=== PATIENT | male | born 1995 | race Caucasian/White ===

== ENCOUNTER 2016-11-04 17:18 | Emergency (ER) | payer BC, OTHER ==
[~2016-11-04] VITALS: Ht 170.2 cm; Wt 90.0 kg
[~2016-11-04 17:18] MED LIST: ERYT.5%O LEFT EYE; LORTA5 PO
[2016-11-04 17:19] VITALS: BP 132/73; PULSE 90; RESP 15; TEMP 98.4; O2SAT 99
--- NOTE | 2016-11-04 18:31 | PD ---
HPI Chief Complaint: Skin Problem Time Seen by Provider: 18:20 Travel History International Travel<30 days: No Contact w/Intl Traveler<30days: No Traveled to known affect area: No History of Present Illness HPI 21-year-old [place] male presents the emergency department with itchy lesions to both lower extremities which she's noticed over the past 2 weeks. Patient states they start with a small area which is very itchy which itches to the point of bleeding and then he gets a small infection to the areas. Has no fever, chills, or other constitutional symptoms. However the patient has noted some loose stools over the past 2 weeks. Patient states the lesions are only on his lower extremities. He denies seeing any insects biting him. 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 No one else in the family has any other similar lesions. He has no history of MRSA in the past. He has no known drug allergies. PFSH Past Medical History Hx Anticoagulant Therapy: No Cardiovascular Problems: No Chemotherapy: No Cerebrovascular Accident: No Diabetes: No Respiratory: No Social History Alcohol Use: No Tobacco Use: No Substance Use: No Allergies-Medications (Allergen,Severity, Reaction): Coded Allergies: No Known Allergies (Unverified , 04/19/15) Reported Meds & Prescriptions Reported Meds & Active Scripts Active [place] 5/325 (Hydrocodone/Acetaminophen 5/325) 5 mg/325 mg Tab 1 Tab PO Q6H PRN Ilotycin (Erythromycin) 3.5 Gm Oint 1 Dose LEFT EYE QID 7 Days Review of Systems Except as stated in HPI: all other systems reviewed are Neg General / Constitutional: No: Fever Eyes: No: Visual changes HENT: No: Headaches Cardiovascular: No: Chest Pain or Discomfort Respiratory: No: Shortness of Breath Gastrointestinal: No: Abdominal Pain Genitourinary: No: Dysuria Musculoskeletal: No: Pain Skin: Positive Rash, Positive Itching, Positive Lesions (see history present illness.) Neurologic: No: Weakness Psychiatric: No: Depression Endocrine: No: Polydipsia Hematologic/Lymphatic: No: Easy Bruising Physical Exam Narrative GENERAL: Patient appears tired but otherwise in no acute distress. SKIN: Warm and dry. Normal color. Normal turgor. Patient has multiple lesions which appear to be excoriated insect bites with localized cellulitis. There is no sign of lymphangitis or abscess. HEAD: Atraumatic. Normocephalic. EYES: Pupils equal and round. No scleral icterus. No injection or drainage. ENT: No nasal bleeding or discharge. Mucous membranes pink and moist. Pharynx is normal. Airway is patent. NECK: Trachea midline. Supple and nontender. CARDIOVASCULAR: Regular rate and rhythm. RESPIRATORY: No accessory muscle use. Clear to auscultation. Breath sounds equal bilaterally. GASTROINTESTINAL: Abdomen soft, non-tender, nondistended. Hepatic and splenic margins not palpable. No CVA tenderness. MUSCULOSKELETAL: Extremities without clubbing, cyanosis, or edema. No obvious deformities. NEUROLOGICAL: Awake and alert. No obvious cranial nerve deficits. Motor grossly within normal limits. Five out of 5 muscle strength in the arms and legs. Normal speech. PSYCHIATRIC: Appropriate mood and affect; insight and judgment normal. Data Data Last Documented VS Vital Signs Date Time Temp Pulse Resp B/P Pulse Ox O2 Delivery O2 Flow Rate FiO2 11/04/16 17:19 98.4 90 15 132/73 99 MDM Medical Decision Making Medical Screen Exam Complete: Yes Emergency Medical Condition: Yes Differential Diagnosis Presumed insect bites. Allergic reaction. Cellulitis. Narrative Course Patient is felt to be medically stable at time of exam. Patient is given a course of Bactrim DS twice a day 10 days. Patient is also given Bactroban ointment to be applied to any lesion twice daily until improved. Recommended patient use insect repellent prior to working outdoors. Especially on the lower boots, socks, and pains. Recommend the patient took his hands into his socks while at work. Patient is to follow-up primary care physician or return to emergency department as needed. Diagnosis Primary Impression: Insect bites of multiple sites, infected Referrals: [facility] Patient Instructions: Cellulitis (ED), General Instructions, Insect Bite or Sting (ED) Additional Instructions: Patient is felt to be medically stable at time of exam. Patient is given a course of Bactrim DS twice a day 10 days. Patient is also given Bactroban ointment to be applied to any lesion twice daily until improved. Recommended patient use insect repellent prior to working outdoors. Especially on the lower boots, socks, and pains. Recommend the patient took his hands into his socks while at work. Patient is to follow-up primary care physician or return to emergency department as needed. Med/Other Pt SpecificInfo: Prescription(s) given, Wound Care Disposition: 01 DISCHARGE HOME Condition: Stable Chepe Bunch Nov 04, 2016 18:31
[2016-11-04] MEDS ORDERED: BACT800T5 PO (18:32)
[2016-11-04] MEDS ORDERED: MUPI2%T TOPICAL (18:32)
== END 2016-11-04 19:00 | disposition home or self-care (01) ==
LOC: NEPK 17:18
DX: S80.862A Insect bite (nonvenomous), left lower leg, initial encounter (principal); S80.861A Insect bite (nonvenomous), right lower leg, initial encounter; L08.9 Local infection of the skin and subcutaneous tissue, unspecified; R19.7 Diarrhea, unspecified; W57.XXXA Bitten or stung by nonvenomous insect and other nonvenomous arthropods, initial encounter
CPT/HCPCS: 99284